=== PATIENT | male | born 1940 | race Caucasian/White ===

== ENCOUNTER 2017-05-18 15:47 | Emergency (ER) | payer OTHER ==
[~2017-05-18] VITALS: Ht 180.3 cm; Wt 80.2 kg
[~2017-05-18 15:47] MED LIST: ALTACE10 MG PO; BRILINTA90 MG PO; DULCOLAX10 MG PR; Fish Oil PO; LIPITOR80 MG PO; LOPRESSOR12.5 MG PO; Livalo PO; MIRALAX255 GM PO; NORCO 5/3251 TABLET PO; PLAVIX75 MG PO; SENOKOT,SENN1 TABLET PO; Skelaxin PO
[2017-05-18] MEDS ORDERED: LIDODERM 5% P1 PATCH TD (17:31)
[2017-05-18] MEDS ORDERED: ULTRACET1 TABLET PO (17:33)
[2017-05-18 18:12] VITALS: BP 122/56
== END 2017-05-18 18:12 | disposition home or self-care (01) ==
LOC: EME 15:47
DX: M62.830 Muscle spasm of back (principal); I25.2 Old myocardial infarction; R73.03 Prediabetes; Z95.1 Presence of aortocoronary bypass graft; K21.9 Gastro-esophageal reflux disease without esophagitis; I10 Essential (primary) hypertension; F41.9 Anxiety disorder, unspecified; E78.5 Hyperlipidemia, unspecified; F32.9 Major depressive disorder, single episode, unspecified; Z87.891 Personal history of nicotine dependence; Z95.5 Presence of coronary angioplasty implant and graft; Z79.02 Long term (current) use of antithrombotics/antiplatelets
CPT/HCPCS: 99281; 99284; J1100